=== PATIENT | female | born 1945 | race Caucasian/White ===

== ENCOUNTER → 2018-07-17 | Outpatient (CLI) | payer MEDICARE ==
[~2018-07-17] MED LIST: ESTR0.5T PO; LANS15CA PO; LEVO88TA54 PO; LOSA1TAB20 PO; MEDR2.5T6 PO; ONDA4TAB10 PO; OXYC5SOL19 PO; PANT40TA3 PO
--- NOTE | 2018-07-17 16:56 | Diagnostic Imaging Report ---
INDICATION: Screening. The current study was also evaluated with a Computer Aided Detection (CAD) system. 3-D Tomographic imaging was also performed. COMPARISON: Comparison made with prior examinations from 04/15/2015, 12/04/2013, and 08/21/2012. FINDINGS: There are scattered fibroglandular densities bilaterally. There are a few benign-type calcifications. There is no dominant mass, spiculated lesion, or suspicious calcification identified. The skin, nipples, and axillae are unremarkable. IMPRESSION: Benign. ACR BI-RADS Category 2: Benign findings. Result letter will be mailed to the patient. Note: At least 10% of breast cancer is not imaged by mammography. Dictated by: Dictated on workstation # [id number]
== END ==
LOC: RAD 13:29
PROVIDERS: ATTEND Obstetrics & Gynecology
DX: Z12.31 Encounter for screening mammogram for malignant neoplasm of breast (principal)
CPT/HCPCS: 77067

== ENCOUNTER 2019-03-15 18:04 | Emergency (ER) | payer MEDICARE ==
[~2019-03-15] VITALS: Ht 167.7 cm; Wt 104.0 kg
--- NOTE | 2019-03-15 18:29 | ED Fall/Injury ---
General Chief Complaint: Trauma-Non Activation Stated Complaint: FALL Nursing Triage Note: Mild to moderate soft tissue swelling to the left side of forehead. Abrasion to left side of forehead and to nose. Source: patient, EMS History of Present Illness Date Seen by Provider: Mar 15, 2019 Time Seen by Provider: 18:04 Initial Comments 73 yo F presents after having a fall this evening. She tripped over a 2 inch gap in the sidewalk that she did not see. She fell forward and hit her face. She has an abrasion to her left forehead and nose. She denies losing consciousness. She has no dizziness or change in her vision. She denies any nausea or vomiting. She has no drainage from her ears or nose. She also has some pain to her left hand along with the fifth metacarpal. There is a little bit of bruising in that area. She states that it has been over 10 years since her last tetanus shot. She denies having any symptoms prior to the fall, such as dizziness or weakness to cause the fall, and states the only reason she fell was because she did not see the gap in the sidewalk and tripped over it. She denies pain other than face, forehead, and left hand. She has no difficulty with ambulation. Location Injury Occurred: Sidewalk Occurred: just prior to arrival Injuries/Pain Location: head, face, upper extremity (left hand) Context: tripped (over a 2 in gap in sidewalk) Loss of Consciousness: no loss of consciousness Modifying Factors: Improves With Cold Therapy (ice pack from EMS) Associated Symptoms (Fall): No Abdominal Pain, No Chest Pain, No Confusion, No Dizziness; Headache (mild to frontal area where she has abrasion and hematoma); No Lightheadedness, No Muscle Spasms, No Nausea/Vomiting, No Neck Pain, No Ringing in Ears, No Seizures, No Shortness of Air, No Slurred Speech, No Trouble Walking, No Vision Changes Allergies and Home Medications Allergies Coded Allergies: No Known Drug Allergies (Unverified , 12/15/15) Home Medications Estradiol 0.5 Mg Tablet, 0.5 MG PO TUESDAY, TUE, TUE, (Reported) Lansoprazole 15 Mg Capsule.dr, 15 MG PO DAILY, (Reported) WILL DISCONTINUE ONCE SHE STARTS PANTOPRAZOLE AFTER SURGERY Levothyroxine Sodium 88 Mcg Tablet, 88 MCG PO HS, (Reported) Losartan/Hydrochlorothiazide 1 Each Tablet, 1 EACH PO DAILY, (Reported) Medroxyprogesterone Acetate 2.5 Mg Tablet, 2.5 MG PO TUESDAY, TUE, TUE, (Re ported) Ondansetron HCl 4 Mg Tablet, 4 MG PO Q4H PRN for NAUSEA/VOMITING, (Reported) Oxycodone HCl 5 Mg/5 Ml Solution, 5-10 ML PO EVERY 4-6 HOURS PRN for PAIN, (Reported) Pantoprazole Sodium 40 Mg Tablet.dr, 40 MG PO DAILY, (Reported) HAS NOT STARTED YET: WILL BEGIN AFTER SURGERY Patient Home Medication List Home Medication List Reviewed: Yes Review of Systems Review of Systems Constitutional: no symptoms reported Eyes: Denies Blurred Vision, Denies Photophobia, Denies Vision Changes Ears, Nose, Mouth, Throat: denies ear discharge, denies nose discharge, denies epistaxis Respiratory: no symptoms reported Cardiovascular: no symptoms reported Gastrointestinal: no symptoms reported; No nausea, No vomiting Genitourinary: no symptoms reported Musculoskeletal: see HPI Skin: see HPI Psychiatric/Neurological: Headache (mild to the left frontal area where she has an abrasion and swelling to left forehead) Past Brfvnpc-Hatizl-Cornhi Hx Past Med/Social Hx: Reviewed Nursing Past Med/Soc Hx Patient Social History Alcohol Use: Denies Use Recreational Drug Use: No Smoking Status: Never a Smoker Recent Foreign Travel: Yes Recent Hopitalizations: No Physical Abuse: No Sexual Abuse: No Mistreated: No Fear: No Immunizations Up To Date Tetanus Booster (TDap): More than 5yrs Date of Pneumonia Vaccine: Mar 21, 2011 Seasonal Allergies Seasonal Allergies: Yes (JUST STARTING THIS YEAR) Past Medical History Surgeries: Yes (BUNIONECTOMY, KNEE SCOPE, ) Gallbladder, Orthopedic Respiratory: No Cardiac: Yes Hypertension Neurological: No ("EYE STROKE" 2007) Reproductive Disorders: No Sexually Transmitted Disease: No HIV/AIDS: No Genitourinary: No Kidney Stones Gastrointestinal: Yes Gastroesophageal Reflux, Chronic Diarrhea Musculoskeletal: No Endocrine: Yes Hypothyroidsim HEENT: No Loss of Vision: Bilateral Hearing Impairment: Denies Cancer: 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 1.0oz. 105.872427ql; 37.1 BMI Method: General Appearance: WD/WN, no apparent distress HEENT: PERRL/EOMI, TMs normal, pharynx normal, other (abrasion to left forehead with small hematoma, abrasion to nose. Negative Cheng sign, Raccoon Sign. 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, no motor/sensory deficits, alert, normal mood/affect, oriented x 3 Skin: warm/dry, ecchymosis (starting to show on left hand over 5th metacarpal, hematoma to left forehead) Newberg Coma Score Best Eye Response: (4) Open Spontaneously Best Verbal Response: (5) Oriented Best Motor Response: (6) Obeys Commands Ceasar Total: 15 Progress/Results/Core Measures Results/Orders My Orders Orders - JOYCE MIRANDA MD Dipht,Pertuss(Acell),Tet Adult (Boostrix (03/15/19 18:30) Ice: Apply To Affected Area (03/15/19 18:28) Wound Dressing-Ed (03/15/19 18:28) Medications Given in ED Current Medications Medications Dose Ordered Sig/Aimee Route Start Time Stop Time Status Last Admin Dose Admin Diphtheria/ Tetanus/Acell Pertussis 0.5 ml ONCE ONCE IM 03/15/19 18:30 03/15/19 18:31 DC 03/15/19 18:51 0.5 ML Vital Signs/I&O 03/15/19 18:05 Temp 36.3 Pulse 79 Resp 16 B/P (MAP) 149/76 (100) Pulse Ox 96 O2 Delivery Room Air Progress Progress Note : Progress Note Reassured patient and family that there was no evidence of any skull fracture or intracranial hemorrhage. Counseled on management of the abrasion and hematoma. Discussed option of x-rays of the left hand with the tenderness and bruising but patient declined x-ray and stated she would treat symptomatically and then follow-up for x-rays if not improving. She also stated she would take Ibuprofen or OTC pain medicine at home rather than take it here. Wound cleaned and dressed with antibiotic ointment and dressing. Update dTaP. Departure Impression Primary Impression: Abrasion of forehead Qualified Codes: S00.81XA - Abrasion of other part of head, initial encounter Additional Impressions: Traumatic hematoma of forehead Qualified Codes: S00.83XA - Contusion of other part of head, initial encounter Fall Qualified Codes: W19.XXXA - Unspecified fall, initial encounter Contusion of left hand, initial encounter Closed head injury without loss of consciousness Qualified Codes: S09.90XA - Unspecified injury of head, initial encounter Disposition: 01 HOME, SELF-CARE Condition: Stable Departure-Patient Inst. Decision time for Depature: 18:38 Referrals: MICHAEL ODOM DO (PCP/Family) Primary Care Physician Patient Instructions: Contusion (DC), Diphtheria and Tetanus Toxoids, and Acellular Pertussis Vaccine, Minor Head Injury (DC), Skin Abrasions (DC) Add. Discharge Instructions: Try to sleep at your head elevated at least on a few pillows for the next few nights to help limit the swelling from the abrasion and hematoma on your forehead. Apply ice 15-20 minutes every few hours to help with the swelling and bruising. You may take acetaminophen or ibuprofen to help with pain and swelling Check back with clinic for continued problems/concerns All discharge instructions reviewed with patient and/or family. Voiced understanding. Images Head/Face 1 - Contusion, Swelling (Hematoma with superficial abrasion), Tenderness 2 - Abrasion (superficial abrasion), Contusion JOYCE MIRANDA MD Mar 15, 2019 18:29
[2019-03-15] MEDS ORDERED: TETANUS,DIPTH,PERTUSS P/F (BOOSTRIX) 0.5 ML VIAL IM ONE (18:30)
[2019-03-15 18:55] VITALS: BP 149/76
== END 2019-03-15 18:55 | disposition home or self-care (01) ==
LOC: EDUNIT# 18:04 → ER FS 18:05
DX: S09.90XA Unspecified injury of head, initial encounter (principal); S00.83XA Contusion of other part of head, initial encounter; S60.222A Contusion of left hand, initial encounter; I10 Essential (primary) hypertension; E03.9 Hypothyroidism, unspecified; K21.9 Gastro-esophageal reflux disease without esophagitis; R40.2142 Coma scale, eyes open, spontaneous, at arrival to emergency department; R40.2252 Coma scale, best verbal response, oriented, at arrival to emergency department; R40.2362 Coma scale, best motor response, obeys commands, at arrival to emergency department; Z87.442 Personal history of urinary calculi; Z85.820 Personal history of malignant melanoma of skin; Z79.52 Long term (current) use of systemic steroids; Z82.49 Family history of ischemic heart disease and other diseases of the circulatory system; W01.10XA Fall on same level from slipping, tripping and stumbling with subsequent striking against unspecified object, initial encounter; Y92.480 Sidewalk as the place of occurrence of the external cause
CPT/HCPCS: 90471; 90715; 99284

== ENCOUNTER → 2019-08-30 | Outpatient (CLI) | payer MEDICARE ==
[~2019-08-30] MED LIST changes: +ONDA-105 PO; -ONDA4TAB10 PO
--- NOTE | 2019-08-30 18:00 | Diagnostic Imaging Report ---
INDICATION: Routine screening. COMPARISON is made with prior mammograms from 07/17/2018 and 04/15/2015. 2-D and 3-D bilateral screening mammography was performed with CAD. Scattered fibroglandular densities are identified bilaterally. Intraparenchymal lymph nodes in the outer aspects of both breasts are noted. No spiculated mass or malignant appearing microcalcifications are seen. Axillae are unremarkable. IMPRESSION: BI-RADS Category 2 No mammographic features suspicious for malignancy are identified. ACR BI-RADS Category 2: Benign findings. Result letter will be mailed to the patient. Note: At least 10% of breast cancer is not imaged by mammography. Dictated by: Dictated on workstation # [id number]
== END ==
LOC: RAD 10:32
PROVIDERS: ATTEND Family Medicine
DX: Z12.31 Encounter for screening mammogram for malignant neoplasm of breast (principal)
CPT/HCPCS: 77063; 77067

== ENCOUNTER → 2020-09-26 | Outpatient (CLI) | payer MEDICARE ==
[~2020-09-26] MED LIST changes: -PANT40TA3 PO; +PANT40TA52 PO
--- NOTE | 2020-09-26 17:25 | Diagnostic Imaging Report ---
INDICATION: Routine screening. COMPARISON: Prior mammograms from 08/30/2019 and 07/17/2018. EXAMINATION: 2D and 3D bilateral screening mammography was performed with CAD. The current study was also evaluated with a Computer Aided Detection (CAD) system. FINDINGS: Scattered fibroglandular densities are identified, bilaterally. Benign nodules as well as benign calcifications appear to be stable. No new mass or malignant appearing microcalcifications are seen. Axillae are unremarkable. IMPRESSION: No mammographic features suspicious for malignancy are identified. ACR BI-RADS Category 2: Benign findings. Result letter will be mailed to the patient. Note: At least 10% of breast cancer is not imaged by mammography. Dictated by: Dictated on workstation # [id number]
== END ==
LOC: RAD 15:15
PROVIDERS: ATTEND Obstetrics & Gynecology
DX: Z12.31 Encounter for screening mammogram for malignant neoplasm of breast (principal)
CPT/HCPCS: 77063; 77067

== ENCOUNTER → 2021-11-17 | Outpatient (CLI) | payer MEDICARE ==
--- NOTE | 2021-11-17 15:07 | Diagnostic Imaging Report ---
Indication: Routine screening. Comparison is made with prior mammogram 09/26/2020 and 08/30/2019. 2-D and 3-D bilateral screening mammography was performed with CAD. CAD is utilized. The current study was also evaluated with a Computer Aided Detection (CAD) system. Scattered fibroglandular densities are identified bilaterally. There are benign calcifications bilaterally. Benign calcifications have increased in the left breast. No spiculated mass or malignant-appearing microcalcifications are seen. Axillae are unremarkable. IMPRESSION: BI-RADS Category 2 No mammographic features suspicious for malignancy are identified. ACR BI-RADS Category 2: Benign findings. Result letter will be mailed to the patient. Note: At least 10% of breast cancer is not imaged by mammography. Dictated by: Dictated on workstation # [id number]
== END ==
LOC: RAD 12:37
PROVIDERS: ATTEND Family Medicine
DX: Z12.31 Encounter for screening mammogram for malignant neoplasm of breast (principal)
CPT/HCPCS: 77063; 77067